=== PATIENT | male | born 1995 | race Caucasian/White ===

== ENCOUNTER 2024-12-02 20:48 | Emergency (ER) | payer OTHER, SELFPAY ==
[2024-12-02 20:51] VITALS: BP 129/99
[2024-12-02 21:33] VITALS: BMI 24.2
[2024-12-02 21:36] VITALS: BP 122/83
[2024-12-02 22:00] VITALS: BP 120/86
--- NOTE | 2024-12-02 23:20 | ED.GENMED ---
History of Present Illness
General
Chief Complaint: Musculo-Skeletal Complaint
Source: patient
Exam Limitations: none
Time Seen by Provider: 12/02/24 22:15
Nursing documentation reviewed up to this point in time: agreed with
History of Present Illness
History of Present Illness:
Patient is a 29-year-old male who presents to the ER complaining of left wrist swelling and discomfort. This started 7 days ago. He feels a crunching in his left wrist especially when he squeezes his left hand or flex and extends his wrist. He
denies any injury. 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 He has been taking ibuprofen and ice however this has not helped his symptoms. He does complain of swelling with denies any redness
to the area. No fevers
Past History
Past History
ED Past Medical History: None
ED Past Surgical History: None
Social History
Tobacco: Non-smoker
Alcohol: None
Drug: None
Living: other (snf)
Phy Exam
General Physical Exam
General Presentation: no apparent distress
General age: appears stated age
General Skin: warm and dry
General Habitus: normal
General Mental: alert
General Hydration: appears well hydrated
Neurological Exam
Neurological Exam: alert and oriented x3
Musculoskeletal Exam
Musculoskeletal Exam: other (Left wrist with strong pulses mild swelling just proximal to the distal radius with tenderness to palpation and a crunching sensation is palpable when patient flexes/extend his wrist or squeezes his hand no erythema )
Skin Exam
Skin Exam: normal color and warm/dry
Psychiatric Exam
Psychiatric Exam: normal mood/affect
Course
Orders/Labs/Results
Orders:
Orders
12/02/24 23:19
Wrist, Left 3 Views CR [CR Wrist - Left Min 3 Views] Urgent
Comment:
Reason For Exam: pain/swelling
12/03/24 00:27
Splints/Slings/Crut- Treatment ONCE
Location: Left
Type of Splint: Amelia Wrist
12/03/24 00:31
Ketorolac [Toradol] 30 mg IM NOW STA
Vital Signs
Initial and Last Documented VS:
Initial Vital Signs
Temp Pulse Resp BP Pulse Ox
97.7 F 68 18 129/99 99
12/02/24 20:51 12/02/24 20:51 12/02/24 20:51 12/02/24 20:51 12/02/24 20:51
Last Documented Vital Signs
Temp Pulse Resp BP Pulse Ox
97.7 F 68 18 120/86 98
12/02/24 20:51 12/02/24 20:51 12/02/24 20:51 12/02/24 22:00 12/02/24 23:27
MDM/Problems Addressed
Differential Diagnosis Includes:
Not limited to tendinitis overuse injury less likely fracture
MDM/Problems Addressed:
X-ray negative symptoms are consistent with tendinitis will DC with universal splint ibuprofen Tylenol and follow-up with hand
*Radiology
Radiology exam reviewed: preliminary read by ED provider (No acute fracture)
*Pulse Oximetry
SaO2: 98
Oxygen Mode of Delivery: Room air
Patient hypoxic: no
*Critical Care Note
Total Time (30-74mins, 75-104mins- exclusive of procedures): Not Applicable
ED Attending Note
-
Portions of this chart may have been created with voice recognition software.� Occasional wrong word or��sound alike� substitutions may have occurred due to the inherent limitations of voice recognition software.
Discharge Plan
Departure
Patient Disposition: Home (Routine Discharge)
Date of Disposition: 12/03/24
Time of Disposition: 00:32
Patient with high blood pressure during this ER visit?: No
Condition: Fair
Covid-19: Not Applicable
Discharge Problem:
Tendonitis
Instructions: Muscle and Bone Pain (DC), Overuse Injuries (DC)
Prescriptions:
No Action
No Current Medications
0
Referrals:
Rom Branham MD [Family Provider, Family Practice]
Brad Allen MD [Active, Orthopedics]
Stand Alone Forms: Return to Work
Activity Restrictions/Additional Instructions:
As discussed wear splint for support, remove several times a day and try to ice the affected area continue ibuprofen 600 mg every 8 hours with food alternate with Tylenol. Call orthopedics on Wednesday for an appointment as soon as possible return if
any worsening of symptoms.
Interventions
Interventions:
*Risk Screen - Suicide Last Done: 12/02/24 20:51
*General Assessment Last Done: 12/02/24 20:51
*Neglect/Abuse Screening Last Done: 12/02/24 20:51
*ED- Fall Risk Assessment Last Done: 12/02/24 21:33
*ED COVID-19 Vaccine History Last Done: 12/02/24 21:33
ED-Musculoskeletal Assessment Last Done: 12/02/24 21:33
Discharge Date and Time
Print Language: MALAWIAN
[2024-12-03] MEDS: TORADOL 30 MG IM (00:37)
== END 2024-12-03 01:00 | disposition home or self-care (01) ==
LOC: EMR 20:48
PROVIDERS: EMERGENCY PHYSICIAN Student in an Organized Health Care Education/Training Program; FAMILY PHYSICIAN Family Medicine
DX: M77.9 Enthesopathy, unspecified (principal); M25.432 Effusion, left wrist
CPT/HCPCS: 96372; 99284; 73110